=== PATIENT | male | born 1940 | race Caucasian/White ===

== ENCOUNTER → 2023-12-18 06:24 | Day surgery (SDC) | payer MEDICARE, OTHER, SELFPAY ==
--- NOTE | 2023-12-17 16:20 | PTCARENOTE ---
Dr. Smith made aware of abnormal EKG. Will review and order anything required. Attempted numerous times to have our pacemaker guidelines completed by 's technical program manager, Dr. Enzo Hamilton's office, in [place] (paperwork faxed and called
office [phone]). Office number is [phone], Device line is [phone]. The device information that was obtained in scanned under other cardiac studies. Dr. Smith made aware this is only information available at this time. Office is now closed.
[2023-12-18] VITALS (7 sets, daily range): BP systolic 121–166; BP diastolic 63–90; BMI 23.8
[2023-12-18] MEDS: TYLENOL 1000 MG PO (13:16)
[2023-12-18] MEDS: NORMOSOL-R 1000 IV (13:29)
[2023-12-18] MEDS: HEPARIN 5000 UNITS SC (14:21)
--- NOTE | 2023-12-18 17:22 | OR.RPT ---
Operative Report
Operative Report
Preoperative Diagnosis: Left cheek SCC
Postoperative Diagnosis: Same
Surgeon: Nicholas Green M.D.
Operations: Resection of the left cheek soft tissue cancer - 78680 (3 cm x 1.5 cm)
�������������������� Fasciocutaneous rhomboid flap wound coverage
Anesthesia: Local with IV sedation
Estimated Blood Loss: Minimal
Drains: None
Specimen: Left cheek cancer and margins
Complications: �None
Procedure:
The patient was taken to the operating room and placed in the supine position. After adequate IV sedation was obtained, the patient's left face was prepped and draped in the usual sterile fashion. The previous biopsy site was identified. This area
was first injected with 1% lidocaine.
A rhomboid incision was made over the area with a maximum dimension of 3 cm with a #15 blade. The tumor was excised. The margins (superior, inferior, lateral, and inferior) taken for frozen which showed no evidence of cancer. The deep margin showed
cancer. Therefore, further excision was done to the underlying parotid gland. Another deep margin showed no residual cancer. With this information, the wound was closed. The wound defect was closed using rhomboid flaps by extending the short
diagonal of the rhomboid by its length to create the flap. The flap of the skin and subcutaneous fascial tissue was raised. The flap was then rotated and transposed into the defect. The wound was reapproximated with #5-0 Nylon in a running and
interrupted fashion.
The sterile dressings were applied to the incisions. The patient tolerated the procedure well. The final instrument, needle, and sponge counts were correct. The patient was transferred to the recovery room.
== END ==
LOC: SDS 06:24
PROVIDERS: ATTENDING PHYSICIAN Surgery
DX: C44.329 Squamous cell carcinoma of skin of other parts of face (principal); L57.8 Other skin changes due to chronic exposure to nonionizing radiation
CPT/HCPCS: 21012; 15733; 88305; 88332; 88331